=== PATIENT | female | born 1975 | race Caucasian/White ===

== ENCOUNTER 2018-03-12 18:33 | Emergency (ER) | payer BC, OTHER ==
--- NOTE | 2018-03-12 19:24 | RAD ---
PORTABLE CHEST 1 VIEW: Date: 03/12/18 Time: 1908 hours HISTORY: Fall. Left-sided chest pain and arm pain. FINDINGS: The heart size is normal. The lungs are expanded without focal areas of consolidation, pneumothorax, or pleural effusions. No acute osseous abnormalities are seen. IMPRESSION: No acute process. POS: ANGELAH
--- NOTE | 2018-03-12 19:26 | RAD ---
LEFT ELBOW TWO VIEWS: History: Fall, left elbow pain. FINDINGS/IMPRESSION: No acute fracture or dislocation is seen. Surgical clips are seen in the soft tissues of the distal l eft arm medially. There are well circumscribed bony densities in the medial aspect of the left elbow. POS: ANGELA
--- NOTE | 2018-03-12 19:26 | RAD ---
LEFT HUMERUS 2 VIEWS: Date: 03/12/18 HISTORY: Fall. Left arm pain. FINDINGS/IMPRESSION: The left humerus is intact. POS: ANGELAH
--- NOTE | 2018-03-12 19:28 | RAD ---
LEFT WRIST TWO VIEWS: History: Fall, left wrist pain. FINDINGS/IMPRESSION: No definite fracture or dislocation is seen. If symptoms do not improve, follow up exam should be obt ained in 7-10 days (including scaphoid view). POS: DONNY
[2018-03-12] MEDS ORDERED: HYDROcodone/Acetaminophen 5/325 mg Tablet ONE ×2 (21:00→21:03)
== END 2018-03-12 21:11 | disposition home or self-care (01) ==
LOC: ERS 18:33
DX: S52.122A Displaced fracture of head of left radius, initial encounter for closed fracture (principal); F17.210 Nicotine dependence, cigarettes, uncomplicated; W08.XXXA Fall from other furniture, initial encounter
CPT/HCPCS: 29105; 71045; 96372; J2270